=== PATIENT | female | born 1975 ===

== ENCOUNTER 2017-12-02 16:48 | Emergency (ER) | payer MEDICAID ==
[2017-12-02 17:09] VITALS: RESP 18; O2SAT 100
[2017-12-02 18:05] LABS: BASO # 0.1 K/uL (0.0-0.2); BASO % 0.5 % (0.0-2.0); EOS # 0.2 K/uL (0.0-0.7); HEMOGLOBIN 12.5 g/dL (11.0-16.0); LYMPH # 2.1 K/uL (1.0-4.3); LYMPH % 19.4 % (20.0-40.0); MEAN CELL VOLUME 74.2 fL (81.0-99.0); MEAN CORPUSCULAR HEMOGLOBIN 23.9 pg (27.0-31.0); MEAN CORPUSCULAR HGB CONC 32.2 g/dL (33.0-37.0); MEAN PLATELET VOLUME 8.3 fL (7.2-11.7); MONO % 9.5 % (0.0-10.0); NEUT # 7.5 K/uL (1.8-7.0); NEUT % 68.6 % (50.0-75.0); NRBC % 0.1 % (0.0-2.0); RBC 5.25 Mil/uL (3.80-5.20); RED CELL DISTRIBUTION WIDTH 21.3 % (11.5-14.5); WHITE BLOOD COUNT 10.9 K/uL (4.8-10.8)
[2017-12-02 18:11] LABS: SQUAMOUS EPITHIAL 5 /hpf (0-5); URINE BACTERIA RARE (<OCC); URINE BILIRUBIN NEGATIVE (NEGATIVE); URINE BLOOD 3+ (NEGATIVE); URINE CALCIUM OXALATE CRYSTALS OCC /hpf (<OCC); URINE CLARITY Hazy (Clear); URINE COLOR Yellow (YELLOW); URINE GLUCOSE (UA) NORMAL (Normal); URINE LEUKOCYTE ESTERASE NEG Leu/uL (Negative); URINE PROTEIN NEGATIVE (NEGATIVE)
[2017-12-02 18:12] LABS: HCG,QUALITATIVE URINE POSITIVE (NEGATIVE)
[2017-12-02 18:13] LABS: INR 1.1; PROTHROMBIN TIME 11.7 SECONDS (9.7-12.2)
--- NOTE | 2017-12-02 18:48 | C.PDOC ---
History Of Present Illness 42 y/o female, M1, LNMP 09/13/17, presents to the ER for evaluation of cramping lower abdominal pain and scant vaginal bleeding gradually developed since yesterday. Otherwise, Pt denies fever, chills, throat pain, recent illness, CP,SOB, cough, N/V/D, back pain, UTI sx, vaginal discharge or irritation. Pt denies care. Ambulate to Ed for evaluation, not in any apparent distress. Time Seen by Provider: 12/02/17 17:01 Chief Complaint (Nursing): Female Genitourinary History Per: Patient History/Exam Limitations: no limitations Onset/Duration Of Symptoms: Days Current Symptoms Are (Timing): Still Present Severity: Moderate Quality Of Discomfort: Cramping Associated Symptoms: denies: Fever, Chills, Nausea, Vomiting, Diarrhea, Urinary Symptoms Past Medical History Reviewed: Historical Data, Nursing Documentation, Vital Signs Vital Signs: Last Vital Signs Temp 98.9 F 12/02/17 16:52 Pulse 86 12/02/17 16:52 Resp 18 12/02/17 16:52 BP 135/77 12/02/17 16:52 Pulse Ox 100 12/02/17 19:03 - Medical History PMH: No Chronic Diseases Surgical History: Family History: States: No Known Family Hx - Social History Hx Alcohol Use: No Hx Substance Use: No - Immunization History Hx Tetanus Toxoid Vaccination: Yes Hx Influenza Vaccination: No Hx Pneumococcal Vaccination: No Review Of Systems Except As Marked, All Systems Reviewed And Found Negative. Constitutional: Negative for: Fever, Chills Cardiovascular: Negative for: Chest Pain Respiratory: Negative for: Shortness of Breath Gastrointestinal: Positive for: Abdominal Pain. Negative for: Nausea, Vomiting , Diarrhea Genitourinary: Negative for: Dysuria, Hematuria Physical Exam - Physical Exam Appears: Well, Non-toxic, No Acute Distress Skin: Normal Color, Warm, Dry, No Rash Nose: No Flaring Oral Mucosa: Moist Throat: No Erythema Neck: Trachea Midline, Supple Chest: Symmetrical Cardiovascular: No Rhythm Irregular, No Friction Rub, No Murmur Gastrointestinal/Abdominal: Soft, Tenderness (mild suprapubic tenderness), No Distention, No Guarding, No Rebound Back: No CVA Tenderness Extremity: Normal ROM, No Pedal Edema, No Deformity Neurological/Psych: Oriented x3, Normal Speech ED Course And Treatment - Laboratory Results Result Diagrams: 12/02/17 17:59 Lab Interpretation: No Acute Changes Urine POC: Positive O2 Sat by Pulse Oximetry: 100 (RA) Pulse Ox Interpretation: Normal Progress Note: Labs, UA, and US- OB Transvag. ordered. On re-eval, pt is afebrile, hemodynamicaly stable. Non-toxic. PulsEOx 100% RA. ENT: No acute findings. neck: SUpple, (-) JVD. Lungs: CTA B/L, BS equal B/L. ABd: benign, ( -) guarding, (-) rebound. Back: (-) CVA tenderness. Neurologicaly intact. Blood work review- no acute abnormalities. Blood type: O positive. US: (+) STEVE , 6w5d, +GS/YS, FP seen, No HR. Beta quant 1183, c/w US findings of 6wks. Pt has clinical findings c/w threated miscarriage. Pt advised on course of ds. ref. to return to ED in 2 days for re-eval./repeat beta quant. return to ED if any worsening or new changes. Disposition Counseled Patient/Family Regarding: Studies Performed, Diagnosis, Need For Followup - Disposition [facility] Disposition: HOME/ ROUTINE Disposition Time: 18:45 Condition: STABLE Additional Instructions: Return to ED in 2 days to repeat blood work, and possible US Return to ED at any time if any worsening or new changes. Regrese a ED en 2 marsh para repetir el anlisis de malvin y posible US Regrese a ED en cualquier momento si hay un empeoramiento o cambios nuevos. 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 - Scribe Statement The provider has reviewed the documentation as recorded by the Daniel Lanier Provider Attestation All medical record entries made by the Scribe were at my direction and personally dictated by me. I have reviewed the chart and agree that the record accurately reflects my personal performance of the history, physical exam, medical decision making, and the department course for this patient. I have also personally directed, reviewed, and agree with the discharge instructions and disposition.
[2017-12-02 20:08] VITALS: BP 122/66; PULSE 714; TEMP 99.4
--- NOTE | 2017-12-03 08:57 | US ---
Date of service: 12/02/2017 PROCEDURE: OB Pelvic Ultrasound HISTORY: Vaginal bleeding, pain COMPARISON: None available. FINDINGS: UTERUS: Single live intrauterine gestation. CRL measures 0.78 cm equivalent to 6 weeks and 5 days of gestational age. Gestational sac diameter measures 0.78 cm equivalent to 6 weeks and 5 days of gestational age. age (Ultrasound estimated): 6 weeks and 2 days Date of delivery (Ultrasound estimated) : 07/26/2018 cardiac activity is not demonstrated on the current examination. Kate-gestational hemorrhage: None. Uterus measures 10.8 x 6.0 x 8.1 cm. No mass CERVIX: Long and closed. No cervical abnormality seen. RIGHT OVARY: Measures 2.4 x 1.5 x 2.4 cm. No mass. Normal flow. There is a 1.1 x 1.0 x 1.4 cm corpus luteum cyst. LEFT OVARY: Measures 2.6 x 1.4 x 1.4 cm. No mass. Normal flow. FREE FLUID: None. OTHER FINDINGS: None. IMPRESSION: Single intrauterine gestational sac with pole and yolk sac. No cardiac activity is documented on the current examination likely due to early gestation. The estimated date of delivery by ultrasound is 07/26/2018. There is discordance with the clinical dates by 5 weeks. Clinical and ultrasound follow-up is advised 2 confirm viability. A preliminary report was provided by [employer] [facility].
== END 2017-12-02 20:13 | disposition home or self-care (01) ==
LOC: C.ER 16:48
DX: O20.0 Threatened abortion (principal)

== ENCOUNTER 2017-12-03 05:24 | Emergency (ER) | payer SELFPAY ==
[2017-12-03 05:46] VITALS: TEMP 99.2
[2017-12-03] MEDS ORDERED: Sodium Chloride 0.9% 1,000 ML IV ONE (05:54)
--- NOTE | 2017-12-03 06:23 | C.PDOC ---
History Of Present Illness 42 y/o female, currently 6 weeks , presents to the ED complaining of abdominal pain, worsening today. Described as cramping. Patient reports moderate vaginal bleeding that began this morning. She was seen yesterday for similar complaints, had labs and US done, showing no activity. Patient was asked to return in 2 days for repeat beta quant however states the symptoms worsened. Otherwise she denies any fever, chills, dizziness, SOB, or chest pain. Time Seen by Provider: 12/03/17 05:53 Chief Complaint (Nursing): Abdominal Pain History Per: Patient History/Exam Limitations: no limitations Onset/Duration Of Symptoms: Days Current Symptoms Are (Timing): Worse Location Of Pain/Discomfort: Suprapubic Quality Of Discomfort: Cramping Abnormal Vaginal Bleeding: Yes Past Medical History Reviewed: Historical Data, Nursing Documentation, Vital Signs Vital Signs: Last Vital Signs Temp 99.2 F 12/03/17 05:38 Pulse 74 12/03/17 05:38 Resp 20 12/03/17 05:38 BP 123/59 L 12/03/17 05:38 Pulse Ox 100 12/03/17 06:24 Surgical History: Family History: States: No Known Family Hx - Social History Hx Tobacco Use: No Hx Alcohol Use: No Hx Substance Use: No - Immunization History Hx Tetanus Toxoid Vaccination: Yes Hx Influenza Vaccination: No Hx Pneumococcal Vaccination: No Review Of Systems Except As Marked, All Systems Reviewed And Found Negative. Constitutional: Negative for: Fever, Chills Cardiovascular: Negative for: Chest Pain Respiratory: Negative for: Shortness of Breath Gastrointestinal: Positive for: Abdominal Pain. Negative for: Nausea, Vomiting , Diarrhea Genitourinary: Positive for: Vaginal Bleeding Neurological: Negative for: Weakness, Dizziness Physical Exam - Physical Exam Appears: Non-toxic, No Acute Distress Skin: Normal Color, Warm, Dry Head: Atraumatic, Normacephalic Eye(s): bilateral: Normal Inspection Neck: Normal ROM Chest: Symmetrical Cardiovascular: Rhythm Regular, No Murmur Respiratory: Normal Breath Sounds, No Accessory Muscle Use Gastrointestinal/Abdominal: Soft, Tenderness (suprapubic tenderness), No Guarding, No Rebound Pelvic: Vaginal Bleeding (Moderate active bleeding with tissue), Cervix Open (Cervical os open) Extremity: Bilateral: Atraumatic, Normal Color And Temperature Neurological/Psych: Oriented x3, Normal Speech ED Course And Treatment - Laboratory Results Result Diagrams: 12/03/17 06:27 12/03/17 06:27 O2 Sat by Pulse Oximetry: 100 (RA) Pulse Ox Interpretation: Normal Progress Note: Labs ordered. Administered IV fluids and 15 mg IV Toradol. + products passed in the ED. Ordered transvag/pelvic ultrasound. 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 - Scribe Statement The provider has reviewed the documentation as recorded by the Scribe (Eunice Saleh) All medical record entries made by the Scribe were at my direction and personally dictated by me. I have reviewed the chart and agree that the record accurately reflects my personal performance of the history, physical exam, medical decision making, and the department course for this patient. I have also personally directed, reviewed, and agree with the discharge instructions and disposition. Physician Patient Turnover Patient Signed Over To: Coretta Pa Handoff Comments: Pending labs, Aand OB US for disposition
[2017-12-03 06:31] LABS: BASO # 0.1 K/uL (0.0-0.2); BASO % 0.5 % (0.0-2.0); EOS # 0.3 K/uL (0.0-0.7); EOS % 2.1 % (0.0-4.0); HEMOGLOBIN 12.9 g/dL (11.0-16.0); LYMPH # 2.3 K/uL (1.0-4.3); LYMPH % 18.2 % (20.0-40.0); MEAN CELL VOLUME 74.7 fL (81.0-99.0); MEAN CORPUSCULAR HEMOGLOBIN 24.2 pg (27.0-31.0); MEAN CORPUSCULAR HGB CONC 32.4 g/dL (33.0-37.0); MEAN PLATELET VOLUME 8.7 fL (7.2-11.7); MONO # 1.1 K/uL (0.0-0.8); MONO % 8.5 % (0.0-10.0); NEUT # 8.8 K/uL (1.8-7.0); NEUT % 70.7 % (50.0-75.0); RBC 5.35 Mil/uL (3.80-5.20); WHITE BLOOD COUNT 12.5 K/uL (4.8-10.8)
[2017-12-03 06:48] LABS: CALCIUM 8.6 mg/dl (8.6-10.4); GFR NON-AFRICAN AMERICAN > 60
[2017-12-03 07:09] LABS: ALB/GLOB RATIO 1.2 (1.0-2.1); ALBUMIN 4.1 g/dL (3.5-5.0); ALT/SGPT 8 U/L (9-52); AST/SGOT 54 U/L (14-36); BLOOD UREA NITROGEN 6 mg/dL (7-17)
--- NOTE | 2017-12-03 09:42 | US ---
Date of service: 12/03/2017 HISTORY: pain, vaginal bleeding, passed products COMPARISON: None available. TECHNIQUE: Transvaginal pelvic ultrasound was performed. FINDINGS: UTERUS: Measures 11.4 x 5.9 x 0.2 cm. Normal in size and appearance. No fibroid or other mass lesion seen. ENDOMETRIUM: Measures 20 mm in diameter. The central endometrial echo complex is thick. No evidence of intrauterine gestational sac. CERVIX: There is echogenic material within the cervical canal most compatible with hemorrhagic products. RIGHT OVARY: Measures 2.3 x 1.7 x 2.7 cm. No solid mass. Normal flow. LEFT OVARY: Measures 2.4 x 1.3 x 2.3 cm. No solid mass. Normal flow. FREE FLUID: No significant free fluid noted. OTHER FINDINGS: None. IMPRESSION: No evidence for intrauterine gestational sac. Hemorrhagic products within the cervical canal compatible with history of on going .
[2017-12-03 10:35] VITALS: RESP 18
[2017-12-03 11:41] VITALS: BP 109/53; PULSE 87; O2SAT 100
== END 2017-12-03 11:41 | disposition home or self-care (01) ==
LOC: C.ER 05:24
DX: O03.9 Complete or unspecified spontaneous abortion without complication (principal)
CPT/HCPCS: 76830; 80053; 84702; 85025; 88305; 96361; 96374; 99285; J1885; J7030